=== PATIENT | female | born 1970 | race Caucasian/White ===

== ENCOUNTER → 2016-08-01 | Outpatient (CLI) | payer BC, OTHER ==
[~2016-08-01] MED LIST: ACET-1311 PO; ACET325T96 PO; IBUP-1459 PO; IBUP1CAP9 PO; OXYC-57 PO
[2016-08-01 13:28] LABS: ALT/SGPT 50 U/L (12-78); AMYLASE 61 U/L (25-115); BLOOD UREA NITROGEN 12 mg/dl (7-18); BUN/CREATININE RATIO 15.4 (10-20); CALCIUM 9.2 mg/dl (8.5-10.1); CARBON DIOXIDE 29 mmol/L (21-32); CHLORIDE 105 mmol/L (98-107); CREATININE 0.76 mg/dl (0.60-1.20); GLUCOSE 99 mg/dl (70-99); POTASSIUM 3.7 mmol/L (3.5-5.1); SODIUM 140 mmol/L (136-145)
[2016-08-01 13:31] LABS: ALKALINE PHOSPHATASE 93 U/L (45-117); AST/SGOT 30 U/L (15-37)
[2016-08-01 13:42] LABS: BASO % 0.1 %; BASO ABS # 0.01 K/uL (0-0.2); COMPLETE YES; EOS % 1.6 %; HEMATOCRIT 39.7 % (37-47); IG% 0.3 %; LYMPH % 22.7 %; LYMPH ABS # 1.55 K/uL (1.2-3.4); MEAN CELL VOLUME 92.3 fL (80-100); MEAN CORPUSCULAR HEMOGLOBIN 32.6 pg (25-34); MEAN CORPUSCULAR HGB CONC 35.3 g/dl (32-36); MEAN PLATELET VOLUME 9.6 fL (7.4-10.4); MONO % 6.9 %; NEUT % 68.4 %; PLATELET COUNT 292 K/uL (130-400); WHITE BLOOD COUNT 6.82 K/uL (4.8-10.8)
== END | disposition home or self-care (01) ==
LOC: C.LABMFLN 11:28
PROVIDERS: ATTEND Family Medicine
DX: R10.13 Epigastric pain (principal)

== ENCOUNTER → 2016-08-21 | Outpatient (CLI) | payer BC ==
--- NOTE | 2016-08-21 08:04 | DIAGNOSTIC IMAGING REPORT ---
ABDOMINAL ULTRASOUND, RIGHT UPPER QUADRANT HISTORY: R10.13 Epigastric pain RUQ. Pt would like to schedule X ray tests. COMPARISON: None. FINDINGS: Pancreas: The pancreas demonstrates a normal echotexture. Liver: Unremarkable. Gallbladder: No gallbladder wall thickening. 2 mm polyp within the fundus. A few tiny stones within the gallbladder. There is also a 7 mm stone at the gallbladder neck which appears to be impacted. CBD: 4 mm. Right kidney: No hydronephrosis. Focal cortical scarring within the lower pole. IMPRESSION: 1. A 7 mm gallstone at the gallbladder neck which appears to be impacted. No gallbladder wall thickening at this time. 2. A 2 mm gallbladder polyp. 3. Normal caliber common bile duct. Electronically signed by: Mychal Velasquez M.D. 08/21/2016 8:01 AM Dictated Date/Time: 08/21/2016 7:58 AM
--- NOTE | 2016-08-21 08:19 | DIAGNOSTIC IMAGING REPORT ---
GI SERIES W/AIR ROUTINE CLINICAL HISTORY: Epigastric pain. COMPARISON STUDY: None. FLUOROSCOPY TIME: 2.9 minutes. 21 images submitted. FINDINGS: The patient swallowed barium without difficulty. The esophagus is normal in course, caliber, motility. No hiatus hernia. No gastroesophageal reflux. No gastric ulcerations. The duodenal bulb and duodenal C sweep are within normal limits. IMPRESSION: Normal upper GI series. Electronically signed by: Mychal Velasquez M.D. 08/21/2016 8:17 AM Dictated Date/Time: 08/21/2016 8:16 AM
== END | disposition home or self-care (01) ==
LOC: C.RAD 07:22
PROVIDERS: ATTEND Family Medicine
DX: R10.13 Epigastric pain (principal); K80.20 Calculus of gallbladder without cholecystitis without obstruction

== ENCOUNTER 2016-09-17 06:21 | Day surgery (SDC) | payer BC ==
[2016-09-10 12:23] VITALS: Ht 162.6 cm; Wt 76.9 kg
--- NOTE | 2016-09-10 12:49 | PAT Medication Instructions ---
Service Date September 10, 2016. Current Home Medication List Acetaminophen (Tylenol), 650 MG PO QID PRN for Pain Ibuprofen (Motrin), 400 MG PO Q6H PRN for Pain Medication Instructions For Your Scheduled Surgery - Hold the following medications the morning of surgery: Ibuprofen (Motrin), 400 MG PO Q6H PRN for Pain (otherwise okay to continue per surgeon) - Take the following medications the morning of surgery with a sip of water OTHERWISE NOTHING TO EAT OR DRINK AFTER MIDNIGHT: Acetaminophen (Tylenol), 650 MG PO QID PRN for Pain (may take if needed up to 4 hours prior to surgery) - Take the following medications as scheduled the night before surgery: Acetaminophen (Tylenol), 650 MG PO QID PRN for Pain Ibuprofen (Motrin), 400 MG PO Q6H PRN for Pain If you have any questions please call us at [phone] or [phone] or [phone]
--- NOTE | 2016-09-10 13:23 | DIAGNOSTIC IMAGING REPORT ---
CHEST 2 VIEWS ROUTINE CLINICAL HISTORY: pat preoperative evaluation COMPARISON STUDY: No previous studies for comparison. FINDINGS: The bones soft tissues and hemidiaphragms are normal. The cardiomediastinal silhouette is normal. The lungs are clear. The pulmonary vasculature is normal. IMPRESSION: Negative chest. Electronically signed by: Ryland Marmolejo M.D. 09/10/2016 1:22 PM Dictated Date/Time: 09/10/2016 1:21 PM
[~2016-09-17] VITALS: Ht 162.6 cm; Wt 76.9 kg
[~2016-09-17 06:21] MED LIST changes: -ACET325T96 PO; -IBUP1CAP9 PO; +LACTATED RINGER'S 1000ML 1,000 ML IV SCH; -OXYC-57 PO
[2016-09-17 06:52] VITALS: BP 113/66; PULSE 70; TEMP 36.7; O2SAT 99
[2016-09-17] MEDS ORDERED: GLYCOPYRROLATE INJ 0.2 MG/ML VIAL ONE (07:26)
[2016-09-17] MEDS ORDERED: ROCURONIUM BROMIDE 10 MG/ML 5 ML VIAL ONE (07:26)
[2016-09-17] MEDS ORDERED: LIDOCAINE HCL 2% 2 ML VIAL (20MG/ML) ONE (07:26)
[2016-09-17] MEDS ORDERED: NEOSTIGMINE METHYLSULFATE 5 MG/5 ML SYR ONE (07:26)
[2016-09-17] MEDS ORDERED: PROPOFOL IV EMULSION 10 MG/ML 20 ML VIAL IV ONE (07:26)
[2016-09-17] MEDS ORDERED: ONDANSETRON INJ 2 MG/ML 2 ML VIAL ONE (07:26)
[2016-09-17] MEDS ORDERED: MIDAZOLAM HCL 1 MG/ML 2ML VIAL ONE (07:26)
[2016-09-17] MEDS ORDERED: FENTANYL CITRATE INJ 50 MCG/1 ML 2 ML VIAL ONE (07:26)
[2016-09-17] MEDS ORDERED: DEXAMETHASONE SOD INJ 4 MG/ML VIAL ONE (07:26)
--- NOTE | 2016-09-17 08:13 | History & Physical Bridge Note ---
H&P Re-Evaluation Bridge Note: I have examined the patient, reviewed the History & Physical and in the interval since the performance of the History & Physical I have noted the following changes of clinical significance: No changes noted at bedside
[2016-09-17] MEDS ORDERED: PHENYLEPHRINE 100MCG/ML 5ML SYR IV PRN (08:15)
[2016-09-17] MEDS ORDERED: ATROPINE SULFATE 0.1 MG/ML 5ML SYR IV PRN (08:15)
[2016-09-17] MEDS ORDERED: EpHEDrine SULFATE INJ 50 MG/ML AMP IV PRN (08:15)
[2016-09-17] MEDS ORDERED: ONDANSETRON INJ 2 MG/ML 2 ML VIAL IV PRN ×2 (08:15→10:00)
[2016-09-17] MEDS ORDERED: CONRAY 60% 50 ML VIAL ONE (08:36)
[2016-09-17] MEDS ORDERED: LIDOCAINE/EPINEPHRINE 1% 20 ML VIAL ONE (08:36)
[2016-09-17] MEDS ORDERED: KETOROLAC TROMETHAMINE 30 MG/ML VIAL ONE (09:12)
--- NOTE | 2016-09-17 09:42 | DIAGNOSTIC IMAGING REPORT ---
INTRAOPERATIVE CHOLANGIOGRAM HISTORY: Post cholecystectomy. FLUOROSCOPY TIME: 5 seconds. 2 fluoroscopic spot images. FINDINGS: Fluoroscopy was provided for an intraoperative cholangiogram status post cholecystectomy. Contrast was injected through the cystic duct remnant. The common bile duct is normal in course and caliber. There are no filling defects seen within the common bile duct to suggest a retained stone. Contrast extends into the small bowel. There is no intrahepatic bile duct dilatation. IMPRESSION: Fluoroscopy provided for an intraoperative cholangiogram status post cholecystectomy. No filling defects within the common bile duct. Electronically signed by: Mychal Velasquez M.D. 09/17/2016 9:41 AM Dictated Date/Time: 09/17/2016 9:40 AM
[2016-09-17] MEDS ORDERED: OXYC-57 PO (09:46)
--- NOTE | 2016-09-17 09:47 | [facility] Operative Report ---
Operative Report Operative Date September 17, 2016. Pre-Operative Diagnosis Symptomatic Cholelithiasis Post-Operative Diagnosis [facility] Procedure(s) Performed tae [place] Surgeon Dr. Limon Wire Machine Operator Surgeon(s) MARISA Kaur Estimated Blood Loss 5 ml Findings ccc Specimens A. Gallbladder I attest to the content of the Intraoperative Record and any orders documented therein. Any exceptions are noted below.
[2016-09-17] MEDS ORDERED: LACTATED RINGER'S 1000ML 1,000 ML IV SCH (09:48)
--- NOTE | 2016-09-17 09:48 | Discharge Instructions ---
Discharge Instructions Date of Service September 17, 2016. Visit Reason for Visit: Symptomatic Cholelithiasis Discharge Discharge Diagnosis / Problem: laparoscopic cholecystectomy Discharge Goals Goal(s): Decrease discomfort Activity Recommendations Activity Limitations: as noted below Lifting Limitations: no more than 10 pounds Shower/Bathe: tomorrow Driving or Machine Use: resume 3 days after discharge (if not taking Percocet) Anesthesia . Post Anesthesia Instructions: If you have had General Anesthesia or IV Sedation: * Do not drive today. * Resume driving when surgeon permits. * Do not make important decisions or sign legal documents today. * Call surgeon for: 1. Temperature elevations greater than 101 degrees F. 2. Uncontrollable pain. 3. Excessive bleeding. 4. Persistent nausea and vomiting. 5. Medication intolerance (nausea, vomiting or rash). * For nausea and vomiting use only clear liquids such as: tea, soda, bouillon until nausea subsides, then gradually increase diet as tolerated. * If you have any concerns or questions, call your surgeon's office. If physician is unavailable and it is an emergency, call 911 or go to the nearest emergency room. . Instructions / Follow-Up Instructions / Follow-Up Dr. Limon in 1 week, call [phone] to schedule if you do not already have an appt Diet Recommendations Recommended Home Diet: no limitations Procedures Procedures Performed: Laparoscopic Cholecystectomy with Intraoperative Cholangiogram Pending Studies Studies pending at discharge: no Medical Emergencies . Who to Call and When: Medical Emergencies: If at any time you feel your situation is an emergency, please call 911 immediately. . Non-Emergent Contact Non-Emergency issues call your: Surgeon Call Non-Emergent contact if: you have a fever, temperature is above 101.5, your pain is not controlled . . "Provider Documentation" section prepared by Hernando Valdes. .
[2016-09-17] MEDS ORDERED: HYDROmorphone INJ 1 MG/ML SYR ONE (09:50)
[2016-09-17] MEDS: HYDROmorphone INJ 2 MG/ML SYR/VIAL IV PRN ×5 (09:51→10:11)
[2016-09-17] MEDS ORDERED: MoRPHine SULFATE 2 MG/ML CARP IV PRN (10:00)
[2016-09-17] MEDS ORDERED: OXYCODONE/ACETAMINOPHEN 5-325 TAB PO PRN ×2 (10:00→11:30)
--- NOTE | 2016-09-17 10:27 | Anesthesiology Progress Note ---
Anesthesia Post Op Note Date & Time September 17, 2016 at 10:27 Vital Signs Pain Intensity: 6 Vital Signs Past 12 Hours Date Time Temp Pulse Resp B/P Pulse Ox O2 Delivery O2 Flow Rate FiO2 09/17/16 10:15 70 17 111/64 96 Room Air 09/17/16 10:05 81 19 132/68 95 Room Air 09/17/16 09:55 86 19 129/63 99 Mask 10 09/17/16 09:49 36.3 99 22 136/81 98 Mask 10 09/17/16 06:52 36.7 70 18 113/66 99 Room Air Notes Mental Status: alert / awake / arousable, participated in evaluation Pt Amnestic to Procedure: Yes Nausea / Vomiting: adequately controlled Pain: adequately controlled Airway Patency, RR, SpO2: stable & adequate BP & HR: stable & adequate Hydration State: stable & adequate Anesthetic Complications: no major complications apparent
[2016-09-17 10:35] VITALS: BP 97/63; PULSE 62; TEMP 36.3; O2SAT 96
[2016-09-17] MEDS ORDERED: OXYCODONE/ACETAMINOPHEN 5-325 TAB ONE (11:04)
[2016-09-17 11:09] VITALS: BP 113/56; PULSE 65; TEMP 36.5; O2SAT 96
[2016-09-17 11:35] VITALS: BP 112/61; PULSE 67; TEMP 36.4; O2SAT 95
[2016-09-17 12:35] VITALS: BP 114/60; PULSE 67; TEMP 36.6; O2SAT 97
--- NOTE | 2016-09-17 16:34 | OPERATIVE REPORT ---
DATE OF OPERATION: 09/17/2016 SURGEON: Adeel Limon M.D. [employer] SYSTEM: Hernando Valdes PA-C PREOPERATIVE DIAGNOSES: Chronic cholecystitis, cholelithiasis. POSTOPERATIVE DIAGNOSES: Same. PROCEDURE: Laparoscopic cholecystectomy, intraoperative cholangiogram. SUMMARY: After induction of general endotracheal anesthesia, the patient's abdomen was prepped with Betadine scrubbing solution and properly draped. I made a small transverse incision above the umbilicus sufficient enough to place a Veress needle followed by CO2, followed by a 5-mm trocar. Under direct visualization, we placed a 5-mm epigastric, two 5-mm subcostal trocars with preemptive local analgesia of 0.5% Marcaine. At this point, the gallbladder was visualized, we elevated. There were no adhesions to the gallbladder. As we went down towards the neck of the gallbladder, we identified a structure. Initially, I thought it was the cystic duct. As I maneuvered around more, it felt more like the artery. We clipped it proximally twice, once distally and divided. We then went into and created a window, identifying the cystic duct, which was more superiorly. We clipped it proximally. A small opening in the cystic duct was made. A #4 ureteral catheter transversed the abdominal wall, positioned in the cystic duct. Serial x-rays were taken, which showed a significant corkscrew of the cystic duct quite long, no common bile duct stones and effluent to duodenum. At this point, we choked up on cystic duct more and I removed the catheter, doubly clipped and divided. Gallbladder was then removed in the antegrade fashion. There was another artery coursing along the liver bed into the gallbladder that we clipped and divided also. We left the posterior peritoneum intact towards the liver, placed the gallbladder in an Endopouch and taken out intact through the epigastric port. We checked the gallbladder fossa. There was no bleeding appreciated. We suctioned out copiously there, rotated the patient on her right and placed in slight Trendelenburg, suctioned out that area and the subhepatic area without difficulty. We placed the camera in the subcostal port to visualize the umbilical opening, there were no adhesions there. At this point, all the individual trocars removed under direct visualization, the last umbilical trocar. A 4-0 Monocryl skin edges. Steri-Strips applied. The procedure was tolerated well by the patient and was taken to recovery room in good condition. I attest to the content of the Intraoperative Record and any orders documented therein. Any exceptio ns are noted below.
== END 2016-09-17 12:50 | disposition home or self-care (01) ==
LOC: C.ACU 06:21
PROVIDERS: ATTEND Surgery
DX: K80.10 Calculus of gallbladder with chronic cholecystitis without obstruction (principal); Z98.890 Other specified postprocedural states; Z98.51 Tubal ligation status; Z85.3 Personal history of malignant neoplasm of breast; Z68.29 Body mass index [BMI] 29.0-29.9, adult; Z82.49 Family history of ischemic heart disease and other diseases of the circulatory system; Z83.3 Family history of diabetes mellitus

== ENCOUNTER → 2016-10-01 | Outpatient (CLI) | payer BC ==
[2015-10-05 14:42] VITALS: BP 108/73; PULSE 96
[~2016-10-01] MED LIST changes: -ACET-1311 PO; -LACTATED RINGER'S 1000ML 1,000 ML IV SCH; +OXYC-57 PO
[2016-10-01 13:54] VITALS: BP 111/76; PULSE 82; TEMP 36.7; O2SAT 97
--- NOTE | 2016-10-01 16:58 | Radiation Oncology Follow-Up ---
Radiation Oncology Follow-Up Date of Visit October 01, 2016. Reason For Visit Annual follow-up Radiation Completion Date 02/15/15 Diagnosis (1) Carcinoma in situ of breast Status: Resolved Onset Date: 09/09/2014 Stage: 0 Permanent Comment: Sclerosing adenosis and ductal hyperplasia 01/28/2014 right breast Abnormal right breast mammogram Status post needle localization excision of right breast mass 09/09/2014 revealing DCIS Estrogen receptor negative and progesterone receptor negative Reexcision 10/14/2014 BRCA1 and BRCA2 negative Status post completion of radiation therapy 02/15/2015 received 6120 cGy Last Edited By: Irena Hardy on Feb 20, 2015 15:35 History of Present Illness Ms. Soliman is a 45-year-old female without a family history of breast cancer. Who is been followed with annual screening mammograms. On 11/11/2013 she underwent bilateral digital screening mammogram. This noted a suggestion of distortion in the lateral mid one third of the right breast best seen on the cc view. Additional imaging was recommended. On 11/26/2013 patient underwent a unilateral right digital diagnostic mammogram and targeted right ultrasound. On spot compression of the right CC view there was a suggestion of architectural distortion. A single coarse benign microcalcification was noted. Real-time high-resolution sonographic evaluation at the 9:00 axis 3 cm in the nipple was dense glandular tissue with ill-defined hypoechoic region centrally within the dense glandular tissue. They discussed the option of a short interval follow-up as well as the possibility of bilateral MRIs. They opted to proceed with bilateral breast MRIs which was performed on 01/07/2014. A large region of abnormal enhancement within the 9:00 right breast correlating with the mammographic asymmetry was identified. There was suggestion of distortion as well as the previously identified ill-defined sonographic abnormality. This region measured approximately 4.2 x 2.2 x 2.5 cm. Although not definitive this was potentially suggestive of malignancy. No regional right axillary lymphadenopathy was seen. Within the left breast scattered foci of enhancement was noted in the middle one third of the lateral left breast with suggestion of second look ultrasound or repeat MRI in 6 months. On 01/28/2014 patient underwent a unilateral right digital diagnostic mammogram and ultrasound guided core biopsy of the right breast. This was taken from the 9 o'clock position. This revealed sclerosing adenosis and ductal hyperplasia without atypia. Microcalcifications were identified. There was no evidence of in situ or invasive carcinoma. Case: [id number]. Follow-up bilateral breast MRI was performed on 08/04/2014. Again noted was a segmental non-mass enhancement within the lateral 9:00 middle depth and posterior right breast measuring 4.4 x 2.4 x 2.0 cm. This was unchanged from the previous examination. No new areas of abnormality were noted. No axillary adenopathy was appreciated. The biopsy marker was seen within the area of enhancement suggesting adequate sampling however given the mammographic architectural distortion and MRI guided or surgical excision biopsy was suggested. Patient was seen by Dr. Kenny. After discussion with the patient of treatment options the patient proceeded with needle localized right breast excision. This was performed on 09/09/2014. 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 The extent of DCIS revealed extensive adenosis with patchy involvement by high-grade octyl carcinoma in situ making measurement size difficult. The largest extent on a single slide is 0.8 cm. The high-grade DCIS involves 14 of the 30 examined slides. There was evidence of focal comedonecrosis. The architectural pattern was cribriform with apocrine features. Echo calcifications were not present. Margins were evaluated. The high-grade DCIS is 0.1 cm from the inked margin and the adenosis extends to the multiple inked margins. Estrogen receptors were negative (less than 1% staining). Progesterone receptors were negative (0% staining). Case: [id number]. Due to the close margins Dr. Kenny proceeded with a reexcision that was performed on 10/14/2014. Multiple margins were excised and evaluated with no evidence of residual DCIS appreciated. Case: [id number]. Due to the patient's age she underwent BRCA1 and BRCA2 analysis. There was no mutations detected for either BRCA1 or 2. The patient recovered well from her surgery. She underwent conventional radiation therapy. She was treated from 12/27/2014 to . She received 6120 cGy. Interim History She's been doing well over this past year in regards to her breast. She has noted no masses or tenderness no change of the axilla. She previously had a pressure discomfort in the breast. This is resolved without difficulty. She is up-to-date on mammography. She did see Dr. Arbutina in follow-up. An MRI of the breast is scheduled for October. She unfortunately developed GI symptoms and was found to have gallbladder disease. She underwent a laparoscopic cholecystectomy 09/17/2016. She has done well postoperatively. Allergies Coded Allergies: No Known Allergies (Verified , 09/17/16) Home Medications Scheduled PRN Ibuprofen (Motrin), 400 MG PO Q6H PRN for Pain Review of Systems Gastrointestinal: Symptoms: WNL Oral: Symptoms: No Problems Respiratory: Symptoms: WNL Urinary: Symptoms: WNL Skin: Symptoms: No Problems Other Skin Symptoms: certain positions when sleeping notes uncomforable feelling right breast Breast: Right Upper Arm Measurement: 28.9 Right Mid Arm Measurement: 23.1 Right Wrist Measurement: 15.3 Left Upper Arm Measurement: 28.0 Left Mid Arm Measurement: 23.1 Left Wrist Measurement: 15.1 Arm Dominence: Right Patient Cosmetic Evaluation: Good Staff Cosmetic Evalaluation: Good Physical Exam Vital Signs Date Time Temp Pulse Resp B/P Pulse Ox O2 Delivery O2 Flow Rate FiO2 10/01/16 13:54 36.7 82 18 111/76 97 Pain: Side: Bilateral Patient Pain Scale: 0 - 10 Initial Pain Intensity: 0.0 Fatigue: None General Appearance: no apparent distress Eyes: normal inspection, EOMI ENT: normal ENT inspection, hearing grossly normal Neck: no adenopathy, thyroid normal Respiratory/Chest: lungs clear, no respiratory distress, no accessory muscle use Breast: Breast examination reveals well-healed incision of the right breast. There are no masses or tenderness and no axillary adenopathy. There are no skin retractions or nipple changes. Using the Logan score cosmesis she has a excellent outcome. Left breast showed no masses or tenderness and no axillary adenopathy. Cardiovascular: regular rate, rhythm, no gallop, no murmur Abdomen: soft, + pertinent finding (well-healed incisions from the laparoscopic cholecystectomy) Extremities: no pedal edema Neurologic/Psychiatric: no motor/sensory deficits, alert, normal mood/affect Skin: warm/dry Laboratory Studies Test 08/01/16 11:55 White Blood Count 6.82 K/uL (4.8-10.8) Red Blood Count 4.30 M/uL (4.2-5.4) Hemoglobin 14.0 g/dL (12.0-16.0) Hematocrit 39.7 % (37-47) Mean Corpuscular Volume 92.3 fL (80-100) Mean Corpuscular Hemoglobin 32.6 pg (25-34) Mean Corpuscular Hemoglobin Concent 35.3 g/dl (32-36) Platelet Count 292 K/uL (130-400) Mean Platelet Volume 9.6 fL (7.4-10.4) Neutrophils (%) (Auto) 68.4 % Lymphocytes (%) (Auto) 22.7 % Monocytes (%) (Auto) 6.9 % Eosinophils (%) (Auto) 1.6 % Basophils (%) (Auto) 0.1 % Neutrophils # (Auto) 4.66 K/uL (1.4-6.5) Lymphocytes # (Auto) 1.55 K/uL (1.2-3.4) Monocytes # (Auto) 0.47 K/uL (0.11-0.59) Eosinophils # (Auto) 0.11 K/uL (0-0.5) Basophils # (Auto) 0.01 K/uL (0-0.2) RDW Standard Deviation 43.1 fL (36.4-46.3) RDW Coefficient of Variation 12.8 % (11.5-14.5) Immature Granulocyte % (Auto) 0.3 % Immature Granulocyte # (Auto) 0.02 K/uL (0.00-0.02) Sodium Level 140 mmol/L (136-145) Potassium Level 3.7 mmol/L (3.5-5.1) Chloride Level 105 mmol/L (98-107) Carbon Dioxide Level 29 mmol/L (21-32) Anion Gap 6.0 mmol/L (3-11) Blood Urea Nitrogen 12 mg/dl (7-18) Creatinine 0.76 mg/dl (0.60-1.20) Estimated GFR () 109.8 Estimated GFR (Non- 94.7 BUN/Creatinine Ratio 15.4 (10-20) Random Glucose 99 mg/dl (70-99) Calcium Level 9.2 mg/dl (8.5-10.1) Total Bilirubin 0.4 mg/dl (0.2-1) Direct Bilirubin < 0.1 mg/dl (0-0.2) Aspartate Amino Transferase (AST) 30 U/L (15-37) Alanine Aminotransferase (ALT) 50 U/L (12-78) Alkaline Phosphatase 93 U/L (45-117) Total Protein 7.2 gm/dl (6.4-8.2) Albumin 4.0 gm/dl (3.4-5.0) Amylase Level 61 U/L (25-115) Lipase 191 U/L (73-393) Additional Studies BILATERAL DIGITAL DIAGNOSTIC MAMMOGRAM TOMOSYNTHESIS WITH CAD: 05/01/2016 CLINICAL HISTORY: Asymptomatic. Personal history of breast cancer. TECHNIQUE: Bilateral breast tomosynthesis in addition to standard 2D mammography was performed. Current study was also evaluated with a Computer Aided Detection (CAD) system. COMPARISON: Comparison is made to exams dated: 10/31/2015 mammogram, 04/26/2015 mammogram, 11/11/2013 mammogram, 01/28/2014 ultrasound biopsy, 11/26/2013 ultrasound - [facility], and 08/04/2012 mammogram - [facility]. BREAST COMPOSITION: There are scattered areas of fibroglandular density in both breasts. FINDINGS: There is expected architectural distortion and associated surgical clips in the upper outer posterior right breast, at the site of prior lumpectomy. No new suspicious mass, architectural distortion or cluster of microcalcifications is seen bilaterally. IMPRESSION: ACR BI-RADS CATEGORY 2: BENIGN Expected post-therapeutic changes in the right breast, without mammographic evidence of malignancy bilaterally. Recommend bilateral screening mammography in one year as well as consider additional surveillance with breast MRI, given that the patient's biopsy proven cancer in the right breast was best identified given suspicious kinetics in that area on MRI. Breast MRI could be performed in the 6 month interval between mammography. These results and recommendations were discussed with the patient at the time of the exam. Approximately 10% of breast cancers are not detected with mammography. A negative mammographic report should not delay biopsy if a clinically suggestive mass is present. Larisa Ochoa M.D. ay/:05/01/2016 09:42:32 Assessment & Plan Plan: Continue with scheduled mammography and MRIs. Continue follow-up with Dr. Efraín Jimenez. We asked her to return to our office in 1 year. She may call if she has any questions or concerns in the interim. Total Time In Follow-Up I spent 20 minutes speaking to the patient performing examination. I spent 15 minutes reviewing information and completing this note. Copy To Arvin Kenny M.D.; Thor Jimenez M.D. Problem Qualifiers (1) Carcinoma in situ of breast: Carcinoma in situ of breast type: intraductal Laterality: right Qualified Codes: D05.11 - Intraductal carcinoma in situ of right breast
== END | disposition home or self-care (01) ==
LOC: C.ONC 13:49
PROVIDERS: ATTEND Physician Assistant Medical
DX: Z08 Encounter for follow-up examination after completed treatment for malignant neoplasm (principal); Z92.3 Personal history of irradiation; Z85.3 Personal history of malignant neoplasm of breast

== ENCOUNTER → 2016-10-30 | Outpatient (CLI) | payer BC ==
[~2016-10-30] MED LIST changes: +GADAVIST IV PRN; -OXYC-57 PO
--- NOTE | 2016-10-31 09:08 | MAMMOGRAPHY REPORT ---
BREAST MRI OF BOTH BREASTS : 10/30/2016 CLINICAL HISTORY: 46-year-old woman with a history of previous right breast cancer diagnosed in 2014, status post breast conservation treatment. She presents for MRI surveillance. COMPARISON: Comparison is made to exams dated: 10/31/2015 mammogram, 04/26/2015 mammogram, 01/28/2014 ultrasound biopsy, 01/28/2014 mammogram, 11/26/2013 ultrasound - [facility], and 08/04 mammogram - [facility]. TECHNIQUE: Using a 1.5 Caron magnet and dedicated breast coil, multisequence axial images were obtain ed through the breasts. After uneventful IV administration of 7.5 mL of Gadavist, dynamic multiphase contrast-enhanced axial images, and sagittal postcontrast were obtained. Temporal subtraction axial images and 3-D MIP images are provided. Everything was then reviewed on a 3-D workstation, [email or web address]. FINDINGS: Right breast: There is no significant background parenchymal enhancement. There is expected architec tural distortion in the 3:00 right breast, at the site of prior lumpectomy. No new suspicious enhanc ing mass, non-mass enhancement or suspicious kinetics are seen in the right breast. There is no foca l skin thickening or nipple retraction. The retromammary fat is intact. No suspicious right axillar y lymphadenopathy. Left breast: There is mild background parenchymal enhancement. There is confluent linear non-mass en hancement in the 2:00 left breast middle and posterior one third of the breast, measuring 5-6 cm in A P dimension. This confluent linear enhancement represents a change comparing to the prior available MRIs from 2013 and 2014. There is corresponding T2 isointensity and slight hyperintensity suggesting this could represent fibrocystic change. However, associated kinetics are mixed persistent and plat eau. This non-mass enhancement remains indeterminate, particularly given the appearance of the patie nt's right breast cancer, and definitive characterization with tissue sampling is recommended. Given the non-mass nature, second look ultrasound would likely be unyielding and therefore an MRI guided b iopsy is recommended. There is no suspicious left axillary lymphadenopathy. IMPRESSION: ACR BI-RADS CATEGORY 4: SUSPICIOUS 1. Newly visualized linear non-mass enhancement extending over 5-6 cm in anterior posterior dimensio n in the 2:00 middle to posterior left breast. Although this could represent fibrocystic change, def initive characterization with an MRI guided biopsy is recommended to exclude the possibility of DCIS. 2. Stable posttreatment changes in the right breast, without MRI evidence of malignancy. 3. No suspicious axillary adenopathy bilaterally. The patient will be called to schedule an appointment. Larisa Ochoa M.D. 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
== END | disposition home or self-care (01) ==
LOC: C.MRI 11:41
PROVIDERS: ATTEND Surgery
DX: D05.11 Intraductal carcinoma in situ of right breast (principal)

== ENCOUNTER → 2016-11-15 | Outpatient (CLI) | payer BC ==
[~2016-11-15] MED LIST changes: +LIDO/EPINEPHRINE/SOD BICARB 20 ML VIAL INFIL ONE; +XYLOCAINE 1%/SOD BICARB 20 ML VIAL INFIL ONE
--- NOTE | 2016-11-15 11:24 | Discharge Instructions ---
Discharge Instructions Procedure Procedure Date: Nov 15, 2016. Reason for visit: Left Non-Mass Enhancement. Discharge Discharge Date: Nov 15, 2016. Discharge Diagnosis: status post breast biopsy Instructions Activity Recommendations: Additional Limitations (see below) Return to School/Work: no limitations Recommended Home Diet: No Limitations Provider Instructions: ACTIVITY RECOMMENDATIONS: * No lifting, pushing, pulling or exercising the affected side for three days. RETURN TO SCHOOL/WORK: * You may return to work/school after the procedure, but do not perform any strenuous activities for 24 to 48 hours. MEDICATIONS: * Tylenol (two 325 mg) every four to six hours if needed for mild pain (if not allergic to Tylenol). DIET: * Resume previous diet. SPECIAL CARE INSTRUCTIONS: * Keep biopsy site dry for 24 hours. May shower after 24 hours, but do not soak (bathe) incision. * May remove Tegaderm (plastic patch) tomorrow AFTER showering. * Leave the steri-strips on for one week. Allow the steri-strips to fall off by themselves. If not off after one week, you may remove them. You may place a Bandaid crosswise over the strips, if desired. * Apply ice 10 minutes on and 10 minutes off as needed. * Wear a bra at bedtime to sleep more comfortably for 2-3 days. * Your referring physician should have the results after approximately 5 to 7 business days. * Call for unusual bleeding, fever, drainage, etc or if you have any questions call during normal business hours or after hours call Dr Walton, . FOLLOW UP VISIT: Follow-up with Referring Physician as scheduled. Allergies Coded Allergies: No Known Allergies (Verified , 09/17/16) Abiola Denise Recommendations: Call your doctor if: * Temperature above 101 degrees * Pain not relieved by pain medicine ordered * There is increased drainage or redness from any incision * You have any unanswered questions or concerns. Your Doctors Instructions noted above were prepared by provider Marifer Walton. Patient Signature Section: Patient Instructions Signature Page Yeimy Soliman Patient (or Guardian) Signature/Date: I have read and understand the instructions given to me by my caregivers. Caregiver/RN/Doctor Signature/Date: The above-named patient and/or guardian has received patient instructions on this date. + Original Patient Signature Page (only) stays with chart. Please make copy for patient.
--- NOTE | 2016-11-15 12:24 | MAMMOGRAPHY REPORT ---
UNILATERAL LEFT DIGITAL DIAGNOSTIC MAMMOGRAM: 11/15/2016 CLINICAL HISTORY: Status post MRI biopsy of non-mass enhancement in the left 2:00 breast. TECHNIQUE: Postprocedural left CC and LM views were obtained. COMPARISON: Comparison is made to exams dated: 11/15/2016 MRI biopsy, 10/30/2016 breast MRI, 05/01/2016 mammogram, and 04/26/2015 mammogram - [facility]. BREAST COMPOSITION: There are scattered areas of fibroglandular density in the left breast. FINDINGS: A new dumbbell-shaped biopsy marker clip is seen within the left upper outer quadrant in t he expected location of the biopsied non-mass enhancement seen on MRI. No significant postbiopsy hem atoma is seen. IMPRESSION: POST PROCEDURE IMAGING FOR MARKER PLACEMENT New biopsy marker clip status post MRI guided biopsy of the left breast. Pathology results are pendi ng. Approximately 10% of breast cancers are not detected with mammography. A negative mammographic report should not delay biopsy if a clinically suggestive mass is present. Marifer Walton M.D. ah/:11/15/2016 11:53:57 Correction Lieutenant: Talib ACOSTA(Nubia)(M), [facility] BI-RADS Code: Post Procedure Imaging For Marker Placement
--- NOTE | 2016-11-18 14:29 | MAMMOGRAPHY REPORT ---
THIS REPORT HAS BEEN AMENDED. MRI BIOPSY LEFT BREAST: 11/15/2016 CLINICAL HISTORY: Linear non-mass enhancement in the left 2:00 breast seen on recent breast MRI, for which biopsy was recommended. COMPARISON: Comparison is made to exams dated: 10/30/2016 breast MRI, 05/01/2016 mammogram, 10/31/2015 mammogram, 04/26/2015 mammogram, 01/28/2014 ultrasound biopsy, and 01/28/2014 mammogram - [facility]. Technique: Written informed consent was obtained from the patient after discussion of the procedure a s well as risks of MRI guided core needle biopsy. A preprocedural timeout was performed prior to sta rting the procedure. The patient was placed prone on a 1.5 Caron MR scanner. The lateral aspect of the left breast was cl eansed with ChloraPrep. The left breast was positioned in a dedicated breast coil and MRI guidance g rid device. After localizing sequences were obtained, pre-and postcontrast axial sequences were performed which c onfirm the persistence of the non mass enhancement in the left upper outer quadrant at approximately 2:00. 7.5 cc Gadavist IV contrast was administered. Using the images, targeting was performed using the Break30 software. The skin was prepped with Betadine through the grid and after local anesthesia was achieved, an intro ducer sheath and localizing obturator were placed into the site using a lateral approach. The locati on of the obturator sheath was confirmed with additional images. Subsequently, multiple samples were obtained from the site using a Suros 9-gauge vacuum-assisted core biopsy device. Postprocedural images demonstrate postbiopsy changes in the expected location of the abnormal enhancement. Through the introducer sheath, a marker clip was placed. Direct pressure w as held at the biopsy site until hemostasis was achieved. The patient tolerated the procedure without immediate complication. Mammography was obtained at the breast center after completion of the biopsy to confirm marker clip placement. [facility] dictation of the exam for further details. The specimens were sent to pathology for analysis. Wo und care instructions were given to the patient. IMPRESSION: MRI BIOPSY MRI-guided core needle biopsy of the non-mass enhancement in the left 2:00 breast, with clip placemen t. The patient will receive pathology results from her referring provider. Marifer Walton M.D. /:11/16/2016 09:27:43 Grocery Associate: cna per diem, [facility] AMENDMENT: 12/05/2016 Marifer Walton M.D. Pathology results from MRI guided left breast biopsy were reviewed on 12/05/2016. The pathology shows fibrocystic changes, which is benign and concordant with the imaging findings. Recommend follow-up bilateral breast MRI in 6 months.
== END | disposition home or self-care (01) ==
LOC: C.MRI 09:14
PROVIDERS: ATTEND Surgery
DX: N63 Unspecified lump in breast (principal)

== ENCOUNTER → 2017-02-13 | Outpatient (CLI) | payer BC ==
[~2017-02-13] MED LIST changes: -GADAVIST IV PRN; -LIDO/EPINEPHRINE/SOD BICARB 20 ML VIAL INFIL ONE; -XYLOCAINE 1%/SOD BICARB 20 ML VIAL INFIL ONE
== END | disposition home or self-care (01) ==
LOC: C.PAPS 11:39
PROVIDERS: ATTEND Obstetrics & Gynecology
DX: Z01.419 Encounter for gynecological examination (general) (routine) without abnormal findings (principal)

== ENCOUNTER → 2017-04-28 | Outpatient (CLI) | payer BC ==
--- NOTE | 2017-04-28 15:09 | MAMMOGRAPHY REPORT ---
BILATERAL DIGITAL DIAGNOSTIC MAMMOGRAM TOMOSYNTHESIS WITH CAD: 04/28/2017 CLINICAL HISTORY: 46-year-old woman with a personal history of right breast DCIS status post breast c onserving treatment. She underwent MRI guided biopsy in the left breast of linear non-mass enhanceme nt 11/15/2016, which yielded benign pathology results. She presents for diagnostic evaluation of bot h breasts. TECHNIQUE: Bilateral breast tomosynthesis in addition to standard 2D mammography was performed. Spot magnification right CC and ML views were also obtained. Current study was also evaluated with a [employer] Aided Detection (CAD) system. COMPARISON: Comparison is made to exams dated: 11/15/2016 mammogram, 11/15/2016 MRI biopsy, 10/30/2016 [facility], 05/01/2016 mammogram, 10/31/2015 mammogram, and 04/26/2015 mammogram - [facility]. BREAST COMPOSITION: There are scattered areas of fibroglandular density in both breasts. FINDINGS: There is expected architectural distortion and surgical clips in the upper outer posterior right breast, at the site of prior lumpectomy. There is a stable dumbbell shaped biopsy marker clip in the upper outer posterior left breast, denoting the site of benign MRI guided biopsy. No suspicio us masses, asymmetries, architectural distortion or cluster of suspicious microcalcifications is seen bilaterally. IMPRESSION: ACR BI-RADS CATEGORY 2: BENIGN Stable post treatment changes in the right breast, and stable postbiopsy changes in the left breast, without mammographic evidence of malignancy bilaterally. Recommend a follow-up breast MRI to ensure stability after biopsy in October 2017, and bilateral diagnostic mammography in April 2018. These results and recommendations were discussed with the patient at the time of the exam. She tenta tively scheduled the follow-up appointments prior to leaving our department. Approximately 10% of breast cancers are not detected with mammography. A negative mammographic report should not delay biopsy if a clinically suggestive mass is present. Larisa Ochoa M.D. ay/:04/28/2017 09:24:11 Social Work Therapist: Cheyenne Torres, [facility] letter sent: Normal 1/2 BI-RADS Code: ACR BI-RADS Category 2: Benign
== END | disposition home or self-care (01) ==
LOC: C.MAMM 08:25
PROVIDERS: ATTEND Surgery
DX: Z08 Encounter for follow-up examination after completed treatment for malignant neoplasm (principal); Z98.890 Other specified postprocedural states

== ENCOUNTER → 2017-10-01 | Outpatient (CLI) | payer BC ==
[~2017-10-01] MED LIST changes: +MELO7.5T5 PO
== END | disposition home or self-care (01) ==
LOC: C.LABMFLN 07:07
PROVIDERS: ATTEND Family Medicine
DX: Z13.220 Encounter for screening for lipoid disorders (principal)